=== PATIENT | female | born 1960 | race Asian ===

== ENCOUNTER 2017-02-09 07:40 | Outpatient (CLI) | payer OTHER | END 2017-02-09 19:04 | disposition home or self-care (01) | LOC: RAD 07:40 | DX: R76.11 Nonspecific reaction to tuberculin skin test without active tuberculosis (principal) ==

== ENCOUNTER 2017-07-29 09:43 | Outpatient (CLI) | payer OTHER | END 2017-07-29 18:00 | disposition home or self-care (01) | LOC: MAMMO 09:43 | DX: Z12.31 Encounter for screening mammogram for malignant neoplasm of breast (principal) ==

== ENCOUNTER 2017-08-09 10:10 | Outpatient (CLI) | payer OTHER | END 2017-08-09 22:55 | disposition home or self-care (01) | LOC: MAMMO 10:10 | DX: R92.8 Other abnormal and inconclusive findings on diagnostic imaging of breast (principal) ==

== ENCOUNTER 2018-05-02 12:21 | Outpatient (CLI) | payer OTHER | END 2018-05-02 22:40 | disposition home or self-care (01) | LOC: RAD 12:21 | DX: R76.11 Nonspecific reaction to tuberculin skin test without active tuberculosis (principal) ==

== ENCOUNTER 2019-05-03 16:14 | Outpatient (CLI) | payer OTHER | END 2019-05-03 19:39 | disposition home or self-care (01) | LOC: RAD 16:14 | DX: Z11.1 Encounter for screening for respiratory tuberculosis (principal) ==

== ENCOUNTER 2020-10-15 16:37 | Outpatient (CLI) | payer OTHER | END 2020-10-15 21:20 | disposition home or self-care (01) | LOC: RAD 16:37 | PROVIDERS: ATTEND Registered Nurse | DX: Z11.1 Encounter for screening for respiratory tuberculosis (principal) ==